=== PATIENT | male | born 1995 | race American Indian/Alaskan Native ===

== ENCOUNTER 2016-09-27 19:08 | Emergency (ER) | payer MEDICAID ==
[2016-09-27 19:18] VITALS: BP 125/70
[2016-09-27] MEDS ORDERED: Albuterol 0.083% 2.5 MG/3 ML Neb Soln NEB ONE (19:49)
[2016-09-27] MEDS ORDERED: Ondansetron 4 MG Tab.DIS PO ONE (19:49)
[2016-09-27] MEDS ORDERED: Codeine/guaiFENesin 100mg-10 MG/5 ML Syrup 10 ML Cup PO ONE (19:53)
--- NOTE | 2016-09-27 20:53 | EDM.PDOC ---
ED HISTORY OF PRESENT ILLNESS - General Chief Complaint: Respiratory Problem Stated Complaint: SICK,LOW OXYGEN Time Seen by Provider: 09/27/16 19:36 Source: Reports: Family (Parent mother) History Limitations: Reports: Physical impairment (Down's syndrome) - History of Present Illness INITIAL COMMENTS - FREE TEXT/NARRATIVE: Hypoxia, respiratory illness: This is a 21-year-old developmentally disabled male presents emergency room with his mother, his mother reports he lives at home today he did not attend adult daycare was home when he started to cough profusely lips turn slightly blue O2 sats 60%. He did not recover like he usually does from his coughing episode mom became concerned and brought to emergency room for evaluation. Samuel did have one coughing episode while in emergency room pointed to his chest as painful and started to cry. Medical History: Down syndrome, chronic lung disease, VSD CPAP at night, home oxygen per concentrator 2 L nasal cannula as needed, Timing/Duration: Reports: Hour(s):, Sudden onset Severity: moderate Location, General: Reports: chest Quality: Reports: Other (Painful per Samuel) Improves with: Reports: Rest Worsens with: Reports: Other (Cough) - Related Data Allergies/ADRs: Allergies Allergy/AdvReac Type Severity Reaction Status Date / Time morphine Allergy Severe Anaphylactic Verified 09/27/16 19:19 Shock loratadine [From Claritin] Allergy Unknown Itching Verified 09/27/16 19:19 Home Meds: Home Meds NK [No Known Home Meds] 09/27/16 [History] Past Medical History HEENT History: Reports: Otitis media Cardiovascular History: Reports: Other (see below) Other Cardiovascular History: Ventral septal defect Respiratory History: Reports: Pneumonia, recurrent, Other (see below) Other Respiratory History: chronic lung disease from scarring from pneumonia PNuemonia aprox 2 months ago. Was hospitalized. Gastrointestinal History: Reports: GERD Musculoskeletal History: Reports: Fracture Other Musculoskeletal History: broken pelvis Other Psychiatric History: Downs Syndrome Endocrine/Metabolic History: Reports: Obesity/BMI 30+ Dermatologic History: Reports: Other (see below) Other Dermatologic History: extremely dry - Past Surgical History HEENT Surgical History: Reports: Adenoidectomy, Tonsillectomy GI Surgical History: Reports: Cholecystectomy Male Surgical History: Reports: Other (see below) Other Male Surgeries/Procedures: testicles brought down Social & Family History - Tobacco Use Smoking Status *Q: Never Smoker Second Hand Smoke Exposure: No - Caffeine Use Caffeine Use: Reports: Energy drinks, Soda, Tea Other Caffeine Use: occassional - Alcohol Use Days Per Week of Alcohol Use: 0 - Recreational Drug Use Recreational Drug Use: No - Living Situation & Occupation Living situation: Reports: single (Lives with mother and younger sister in [facility]. He attends adult daycare) Occupation: disabled (Down's syndrome) ED ROS GENERAL - Review of Systems Review Of Systems: See Below Constitutional: Reports: other (Sudden onset of increased cough and not feeling well.) HEENT: Reports: No symptoms Respiratory: Reports: cough, other (History of chronic lung disease, CPAP at night, O2 as do needed at home, history of hypoxia) Cardiovascular: Reports: No symptoms, Other (VSD) Endocrine: Reports: no symptoms GI/Abdominal: Reports: Nausea (From coughing) : Reports: no symptoms Musculoskeletal: Reports: no symptoms Skin: Reports: no symptoms Neurological: Reports: no symptoms Psychiatric: Reports: No symptoms Hematologic/Lymphatic: Reports: no symptoms Immunologic: Reports: no symptoms ED EXAM, GENERAL - Physical Exam Exam: See Below (Tearful and intermittent crying during exam otherwise pleasant and smiling no distress) Exam Limited By: No limitations General Appearance: alert, anxious Eye Exam: bilateral eye: normal inspection Ears: normal external exam, normal canal, hearing grossly normal, normal TMs, hearing loss Nose: normal inspection, normal mucosa, no blood Throat/Mouth: Normal inspection, Normal lips, Normal teeth, Normal gums, Normal oropharynx, Normal voice, No airway compromise Head: atraumatic, normocephalic Neck: normal inspection, supple, non-tender, full range of motion Respiratory/Chest: no respiratory distress, lungs clear, normal breath sounds, no accessory muscle use, chest non-tender, other (O2 sats greater than 93% while in the ER) Cardiovascular: regular rate, rhythm (Murmur present) GI/Abdominal: normal bowel sounds, soft, non tender, no organomegaly, no distention, no abnormal bruit, no mass (Male) Exam: Deferred Rectal (Males) Exam: Deferred Back Exam: normal inspection, full range of motion Extremities: normal inspection, normal range of motion, non-tender, no pedal edema, normal capillary refill Neurological: alert, normal cognition (At baseline per Mom) Psychiatric: normal affect, normal mood Skin Exam: Warm, Dry, Intact, Normal color, No rash Lymphatic: no adenopathy Course - Vital Signs Last Recorded V/S: Last Vital Signs Temp 36.3 C 09/27/16 19:17 Pulse 86 09/27/16 19:17 Resp 24 H 09/27/16 19:17 BP 125/70 09/27/16 19:17 Pulse Ox 93 L 09/27/16 19:17 - Orders/Labs/Meds Orders: Active Orders 24 hr Category Date Time Status Cardiac Monitoring [RC] .As Directed Care 09/27/16 19:48 Active RT Aerosol Therapy [RC] ASDIRECTED Care 09/27/16 19:50 Active CULTURE BLOOD [BC] Urgent Lab 09/27/16 19:48 Received CULTURE BLOOD [] Urgent Lab 09/27/16 19:48 Received CULTURE STREP A CONFIRMATION [] Stat Lab 09/27/16 20:39 Results STREP SCRN A RAPID W CULT CONF [] Stat Lab 09/27/16 20:39 Results Blood Culture x2 Reflex Set [OM.PC] Urgent Oth 09/27/16 19:48 Ordered Labs: Laboratory Tests 09/27/16 09/27/16 09/27/16 Range/Units 19:48 19:48 19:48 WBC 6.0 (4.5-11.0) K/uL RBC 4.26 L (4.30-5.90) M/uL Hgb 14.6 (12.0-15.0) g/dL Hct 43.3 (40.0-54.0) % MCV 102 H (80-98) fL MCH 34 H (27-31) pg MCHC 34 (32-36) % Plt Count 303 (150-400) K/uL Neut % (Auto) 45 (36-66) % Lymph % (Auto) 41 (24-44) % [place] % (Auto) 10 H (2-6) % Eos % (Auto) 1 L (2-4) % Baso % (Auto) 4 H (0-1) % Sodium 142 (140-148) mmol/L Potassium 3.4 L (3.6-5.2) mmol/L Chloride 105 (100-108) mmol/L Carbon Dioxide 27 (21-32) mmol/L Anion Gap 13.4 (5.0-14.0) mmol/L BUN 10 (7-18) mg/dL Creatinine 1.2 (0.8-1.3) mg/dL Est Cr Clr Drug Dosing 68.87 mL/min Estimated GFR (MDRD) > 60 (>60) Glucose 105 (74-106) mg/dL Lactic Acid 2.6 H (0.4-2.0) mmol/L Calcium 8.5 (8.5-10.1) mg/dL Total Bilirubin 0.4 (0.2-1.0) mg/dL AST 19 (15-37) U/L ALT 29 (12-78) U/L Alkaline Phosphatase 37 L (46-116) U/L Total Protein 7.9 (6.4-8.2) g/dL Albumin 3.5 (3.4-5.0) g/dL Globulin 4.4 H (2.3-3.5) g/dL Albumin/Globulin Ratio 0.8 L (1.2-2.2) Amylase (25-115) U/L Lipase 87 (73-393) U/L 09/27/16 Range/Units 19:48 WBC (4.5-11.0) K/uL RBC (4.30-5.90) M/uL Hgb (12.0-15.0) g/dL Hct (40.0-54.0) % MCV (80-98) fL MCH (27-31) pg MCHC (32-36) % Plt Count (150-400) K/uL Neut % (Auto) (36-66) % Lymph % (Auto) (24-44) % [place] % (Auto) (2-6) % Eos % (Auto) (2-4) % Baso % (Auto) (0-1) % Sodium (140-148) mmol/L Potassium (3.6-5.2) mmol/L Chloride (100-108) mmol/L Carbon Dioxide (21-32) mmol/L Anion Gap (5.0-14.0) mmol/L BUN (7-18) mg/dL Creatinine (0.8-1.3) mg/dL Est Cr Clr Drug Dosing mL/min Estimated GFR (MDRD) (>60) Glucose (74-106) mg/dL Lactic Acid (0.4-2.0) mmol/L Calcium (8.5-10.1) mg/dL Total Bilirubin (0.2-1.0) mg/dL AST (15-37) U/L ALT (12-78) U/L Alkaline Phosphatase (46-116) U/L Total Protein (6.4-8.2) g/dL Albumin (3.4-5.0) g/dL Globulin (2.3-3.5) g/dL Albumin/Globulin Ratio (1.2-2.2) Amylase 51 (25-115) U/L Lipase (73-393) U/L Meds: Medications Discontinued Medications Generic Name Dose Route Start Last Admin Trade Name Freq PRN Reason Stop Dose Admin Albuterol 2.5 mg 09/27/16 19:49 09/27/16 20:17 Proventil Neb Soln NEB 09/27/16 19:50 2.5 mg ONETIME ONE Administration Guaifenesin/Codeine Phosphate 10 ml 09/27/16 19:53 09/27/16 20:17 Robitussin Ac PO 09/27/16 19:54 10 ml ONETIME ONE Administration Ondansetron HCl 4 mg 09/27/16 19:49 09/27/16 20:17 Zofran Odt PO 09/27/16 19:50 4 mg ONETIME ONE Administration Departure - Departure Time of Disposition: 21:20 Disposition: Home, Self-Care 01 Condition: good Clinical Impression: Bronchitis Instructions: Acute Bronchitis, [id number] Referrals: Bruno Hurt MD [Primary Care Provider] - Forms: ED Department Discharge Care Plan Goals: bronchitis -Zithromax 2 tablets today then one tab daily x4 -Robitussin-AC 2 teaspoons every 4-6 hours as needed for painful cough -Rest, push fluids, take medication as directed -Okay to return to daycare a feeling well -Return to clinic or ER for any concerns, increase cough, fever, chills, nausea , vomiting, or worsening of symptoms He should have a recheck with his primary care provider in the next 2-3 days - Problem List & Annotations (1) Bronchitis SNOMED Code(s): 94362848 Code(s): J40 - BRONCHITIS, NOT SPECIFIED ACUTE OR CHRONIC Status: Acute Priority: High - My Orders Last 24 Hours: My Active Orders 09/27/16 19:48 Cardiac Monitoring [RC] .As Directed CULTURE BLOOD [BC] Urgent CULTURE BLOOD [BC] Urgent Blood Culture x2 Reflex Set [OM.PC] Urgent 09/27/16 19:50 RT Aerosol Therapy [RC] ASDIRECTED 09/27/16 20:39 CULTURE STREP A CONFIRMATION [RM] Stat STREP SCRN A RAPID W CULT CONF [RM] Stat - Assessment/Plan Last 24 Hours: My Active Orders 09/27/16 19:48 Cardiac Monitoring [RC] .As Directed CULTURE BLOOD [BC] Urgent CULTURE BLOOD [BC] Urgent Blood Culture x2 Reflex Set [OM.PC] Urgent 09/27/16 19:50 RT Aerosol Therapy [RC] ASDIRECTED 09/27/16 20:39 CULTURE STREP A CONFIRMATION [RM] Stat STREP SCRN A RAPID W CULT CONF [] Stat Plan: bronchitis -Zithromax 2 tablets today then one tab daily x4 -Robitussin-AC 2 teaspoons every 4-6 hours as needed for painful cough -Rest, push fluids, take medication as directed -Okay to return to daycare a feeling well -Return to clinic or ER for any concerns, increase cough, fever, chills, nausea , vomiting, or worsening of symptoms He should have a recheck with his primary care provider in the next 2-3 days
--- NOTE | 2016-09-28 08:58 | CR ---
Abdomen 2V AP Flat Upright HISTORY: Cough COMPARISON: CT scan 07/01/2016. FINDINGS: Prior cholecystectomy. Bowel gas pattern nonobstructive. No free air. Scattered stool with in the colon. Impression: No evidence for acute abdominal process.
--- NOTE | 2016-09-28 09:02 | CR ---
Chest 2V HISTORY: Cough COMPARISON: Prior CT scan 07/01/2016. Prior chest x-ray 04/08/2016. FINDINGS: No dense infiltrates. Cardiac size and pulmonary vessels normal. No effusions. Impression: No acute pulmonary disease.
== END 2016-09-27 21:20 | disposition home or self-care (01) ==
LOC: JP.ED 19:08
DX: J40 Bronchitis, not specified as acute or chronic (principal); Z88.5 Allergy status to narcotic agent; Z88.8 Allergy status to other drugs, medicaments and biological substances; Z90.49 Acquired absence of other specified parts of digestive tract; Z98.890 Other specified postprocedural states
CPT/HCPCS: 36415; 71020; 74020; 80053; 82150; 83605; 83690; 85025; 87040; 87081; 87430; 87804; 99284; A9270; 99283

== ENCOUNTER 2017-05-03 19:14 | Emergency (ER) | payer MEDICAID ==
[2017-05-03] MEDS ORDERED: Ondansetron 4 MG/2 ML SDV IVPUSH ONE (20:51)
--- NOTE | 2017-05-03 20:57 | EDM.PDOC ---
ED HPI GENERAL MEDICAL PROBLEM - General Chief Complaint: Gastrointestinal Problem Stated Complaint: VOMITING,COUGH Time Seen by Provider: 05/03/17 19:21 Source of Information: Reports: Patient, Family History Limitations: Reports: Other (Down syndrome) - History of Present Illness INITIAL COMMENTS - FREE TEXT/NARRATIVE: History collected with help of mother. 21 years old male patient with history of Down syndrome brought in by his mom with chief complaint of vomiting for the last 2 hours. Also coughing, productive was clear sputum. Denies any fever. Complaining of chest pain and abdominal pain. Complete review of system cannot be done because patient special-needs and history of Down syndrome. Denies any fever. Chest Pain Score (Numeric/FACES): 5 - Related Data Allergies Allergy/AdvReac Type Severity Reaction Status Date / Time morphine Allergy Severe Anaphylactic Verified 05/03/17 20:35 Shock loratadine [From Claritin] Allergy Unknown Itching Verified 05/03/17 20:35 Home Meds: Home Meds NK [No Known Home Meds] 09/27/16 [History] Past Medical History HEENT History: Reports: Otitis Media Cardiovascular History: Reports: Other (See Below) Other Cardiovascular History: VSD Respiratory History: Reports: Pneumonia, Recurrent, Other (See Below) Other Respiratory History: Chronic lung disease Gastrointestinal History: Reports: GERD Musculoskeletal History: Reports: Fracture Other Musculoskeletal History: broken pelvis Other Psychiatric History: Downs Syndrome Endocrine/Metabolic History: Reports: Obesity/BMI 30+ Dermatologic History: Reports: Other (See Below) Other Dermatologic History: extremely dry - Past Surgical History GI Surgical History: Reports: Cholecystectomy Social & Family History - Tobacco Use Smoking Status *Q: Never Smoker Second Hand Smoke Exposure: Yes - Caffeine Use Caffeine Use: Reports: Energy Drinks, Soda, Tea Other Caffeine Use: occassional - Alcohol Use Days Per Week of Alcohol Use: 0 - Recreational Drug Use Recreational Drug Use: No - Living Situation & Occupation Living situation: Reports: Single Occupation: Disabled ED ROS GENERAL - Review of Systems Review Of Systems: ROS reveals no pertinent complaints other than HPI. ED EXAM, GI/ABD - Physical Exam Exam: See Below Exam Limited By: No Limitations General Appearance: Alert, WD/WN, No Apparent Distress Nose: Normal Inspection, Normal Mucosa, No Blood Throat/Mouth: Normal Inspection, Normal Lips, Normal Teeth, Normal Gums, Normal Oropharynx, Normal Voice, No Airway Compromise Head: Atraumatic, Normocephalic Neck: Normal Inspection, Supple, Non-Tender, Full Range of Motion Respiratory/Chest: No Respiratory Distress. No: Decreased Breath Sounds, Crackles, Rhonchi, Wheezing Cardiovascular: Normal Peripheral Pulses, Regular Rate, Rhythm, No Edema, No Gallop, No JVD, No Rub, Systolic Murmur GI/Abdominal Exam: Normal Bowel Sounds, Soft, No Organomegaly, No Distention, No Abnormal Bruit, No Mass, Pelvis Stable, Tender. No: Guarding, Rebound Extremities: Normal Inspection, Normal Range of Motion, Non-Tender, Normal Capillary Refill, No Pedal Edema Neurological: Alert, CN II-XII Intact, Normal Reflexes, No Motor/Sensory Deficits, Slow to Respond. No: Disoriented Course - Vital Signs Last Recorded V/S: Last Vital Signs Temp 35.8 C 05/03/17 21:20 Pulse 78 05/03/17 21:20 Resp 20 05/03/17 21:20 BP 119/75 05/03/17 21:20 Pulse Ox 93 L 05/03/17 21:20 - Orders/Labs/Meds Orders: Active Orders 24 hr Category Date Time Status EKG Documentation Completion [RC] ASDIRECTED Care 05/03/17 20:49 Active Chest 2V [CR] Urgent Exams 05/03/17 20:47 Taken Azithromycin [Zithromax] 500 mg Med 05/03/17 22:31 Active Sodium Chloride 0.9% [Normal Saline] 250 ml IV ONETIME cefTRIAXone [Rocephin] 1 gm Med 05/03/17 22:31 Active Sodium Chloride 0.9% [Normal Saline] 50 ml IV ONETIME ED Antiemetic Medication Reflex [OM.PC] Click to Edit Oth 05/03/17 20:47 Ordered EKG 12 Lead [EK] Urgent Ther 05/03/17 20:47 Ordered Medication Orders Azithromycin 500 mg/ Sodium (Chloride) 250 mls @ 250 mls/hr IV ONETIME ONE Stop: 05/03/17 23:30 Ceftriaxone Sodium 1 gm/ (Sodium Chloride) 50 mls @ 100 mls/hr IV ONETIME ONE Stop: 05/03/17 23:00 Labs: Laboratory Tests 05/03/17 05/03/17 05/03/17 Range/Units 21:05 21:05 21:05 WBC 8.8 (4.5-11.0) K/uL RBC 4.48 (4.30-5.90) M/uL Hgb 15.6 H (12.0-15.0) g/dL Hct 45.4 (40.0-54.0) % MCV 101 H (80-98) fL MCH 35 H (27-31) pg MCHC 34 (32-36) % Plt Count 323 (150-400) K/uL Neut % (Auto) 56 (36-66) % Lymph % (Auto) 34 (24-44) % [place] % (Auto) 8 H (2-6) % Eos % (Auto) 1 L (2-4) % Baso % (Auto) 1 (0-1) % Sodium 139 L (140-148) mmol/L Potassium 4.0 (3.6-5.2) mmol/L Chloride 104 (100-108) mmol/L Carbon Dioxide 27 (21-32) mmol/L Anion Gap 12.0 (5.0-14.0) mmol/L BUN 12 (7-18) mg/dL Creatinine 1.1 (0.8-1.3) mg/dL Est Cr Clr Drug Dosing 75.13 mL/min Estimated GFR (MDRD) > 60 (>60) Glucose 97 (74-106) mg/dL Lactic Acid 1.4 (0.4-2.0) mmol/L Calcium 8.6 (8.5-10.1) mg/dL Total Bilirubin 0.2 (0.2-1.0) mg/dL AST 20 (15-37) U/L ALT 31 (12-78) U/L Alkaline Phosphatase 61 (46-116) U/L Troponin I < 0.017 (0.000-0.056) ng/mL Total Protein 7.6 (6.4-8.2) g/dL Albumin 3.4 (3.4-5.0) g/dL Globulin 4.2 H (2.3-3.5) g/dL Albumin/Globulin Ratio 0.8 L (1.2-2.2) Amylase 70 (25-115) U/L Lipase 85 (73-393) U/L Urine Color Urine Appearance Urine pH (4.5-8.0) Ur Specific [place] (1.008-1.030) Urine Protein (NEGATIVE) mg/dL Urine Glucose (UA) (NEGATIVE) mg/dL Urine Ketones (NEGATIVE) mg/dL Urine Occult Blood (NEGATIVE) Urine Nitrite (NEGAITVE) Urine Bilirubin (NEGATIVE) Urine Urobilinogen (NORMAL) mg/dL Ur Leukocyte Esterase (NEGATIVE) Urine RBC (0-5) Urine WBC (0-5) Ur Epithelial Cells Amorphous Sediment Urine Bacteria Urine Mucus 05/03/17 Range/Units 21:31 WBC (4.5-11.0) K/uL RBC (4.30-5.90) M/uL Hgb (12.0-15.0) g/dL Hct (40.0-54.0) % MCV (80-98) fL MCH (27-31) pg MCHC (32-36) % Plt Count (150-400) K/uL Neut % (Auto) (36-66) % Lymph % (Auto) (24-44) % [place] % (Auto) (2-6) % Eos % (Auto) (2-4) % Baso % (Auto) (0-1) % Sodium (140-148) mmol/L Potassium (3.6-5.2) mmol/L Chloride (100-108) mmol/L Carbon Dioxide (21-32) mmol/L Anion Gap (5.0-14.0) mmol/L BUN (7-18) mg/dL Creatinine (0.8-1.3) mg/dL Est Cr Clr Drug Dosing mL/min Estimated GFR (MDRD) (>60) Glucose (74-106) mg/dL Lactic Acid (0.4-2.0) mmol/L Calcium (8.5-10.1) mg/dL Total Bilirubin (0.2-1.0) mg/dL AST (15-37) U/L ALT (12-78) U/L Alkaline Phosphatase (46-116) U/L Troponin I (0.000-0.056) ng/mL Total Protein (6.4-8.2) g/dL Albumin (3.4-5.0) g/dL Globulin (2.3-3.5) g/dL Albumin/Globulin Ratio (1.2-2.2) Amylase (25-115) U/L Lipase (73-393) U/L Urine Color Yellow Urine Appearance Clear Urine pH 6.0 (4.5-8.0) Ur Specific [place] 1.010 (1.008-1.030) Urine Protein Negative (NEGATIVE) mg/dL Urine Glucose (UA) Normal (NEGATIVE) mg/dL Urine Ketones Negative (NEGATIVE) mg/dL Urine Occult Blood Negative (NEGATIVE) Urine Nitrite Negative (NEGAITVE) Urine Bilirubin Negative (NEGATIVE) Urine Urobilinogen Normal (NORMAL) mg/dL Ur Leukocyte Esterase Negative (NEGATIVE) Urine RBC Not seen (0-5) Urine WBC Not seen (0-5) Ur Epithelial Cells Rare Amorphous Sediment Not seen Urine Bacteria Rare Urine Mucus Not seen Meds: Medications Generic Name Dose Route Start Last Admin Trade Name Freq PRN Reason Stop Dose Admin Azithromycin 500 mg/ Sodium 250 mls @ 250 mls/hr 05/03/17 22:31 Chloride IV 05/03/17 23:30 ONETIME ONE Ceftriaxone Sodium 1 gm/ 50 mls @ 100 mls/hr 05/03/17 22:31 Sodium Chloride IV 05/03/17 23:00 ONETIME ONE Discontinued Medications Generic Name Dose Route Start Last Admin Trade Name Freq PRN Reason Stop Dose Admin Ondansetron HCl 4 mg 05/03/17 20:51 05/03/17 21:16 Zofran IVPUSH 05/03/17 20:52 4 mg ONETIME ONE Administration - Re-Assessments/Exams Free Text/Narrative Re-Assessment/Exam: 05/03/17 20:56 Patient was seen and examined shortly after arrival. Stable. Given 4 mg IV Zofran. Lab and imaging reviewed with the patient and his mother at the bedside. No significant abnormalities. Chest x-ray is suspicious for possible early developing pneumonia. Started on Rocephin and azithromycin. Mom stated that he usually gets sick very quick and always need to be hospitalized. We do not have any available bed. I did consulted with Dr. Irizarry ER physician at [facility] and Dr. Blackwood hospitalist and accepted the transfer. Patient accepted by Dr. Irizarry and margaret for discharge. Mom agrees with the plan. 05/03/17 22:49 Departure - Departure Time of Disposition: 22:51 Disposition: DC/Tfer to Acute Hospital 02 Condition: Good Clinical Impression: Pneumonia, Vomiting - Discharge Information Referrals: Bruno Hurt MD [Primary Care Provider] - Forms: ED Department Discharge - My Orders Last 24 Hours: My Active Orders 05/03/17 20:47 Chest 2V [CR] Urgent ED Antiemetic Medication Reflex [OM.PC] Click to Edit EKG 12 Lead [EK] Urgent 05/03/17 20:49 EKG Documentation Completion [RC] ASDIRECTED 05/03/17 22:31 Azithromycin [Zithromax] 500 mg Sodium Chloride 0.9% [Normal Saline] 250 ml IV ONETIME cefTRIAXone [Rocephin] 1 gm Sodium Chloride 0.9% [Normal Saline] 50 ml IV ONETIME - Assessment/Plan Last 24 Hours: My Active Orders 05/03/17 20:47 Chest 2V [CR] Urgent ED Antiemetic Medication Reflex [OM.PC] Click to Edit EKG 12 Lead [EK] Urgent 05/03/17 20:49 EKG Documentation Completion [RC] ASDIRECTED 05/03/17 22:31 Azithromycin [Zithromax] 500 mg Sodium Chloride 0.9% [Normal Saline] 250 ml IV ONETIME cefTRIAXone [Rocephin] 1 gm Sodium Chloride 0.9% [Normal Saline] 50 ml IV ONETIME
[2017-05-03] MEDS ORDERED: Azithromycin 500 MG in Sodium Chloride 0.9% 250 ML IV ONE (22:31)
[2017-05-03] MEDS ORDERED: cefTRIAXone 1 GM in Sodium Chloride 0.9% 50 ML IV ONE (22:31)
[2017-05-03 22:57] VITALS: BP 123/72
--- NOTE | 2017-05-04 08:56 | CR ---
Chest 2V HISTORY: cough COMPARISON: 09/27/2016 FINDINGS: Lungs appear clear and normally aerated. Cardiomediastinal silhouette is within normal limits. No vas cular redistribution or pleural fluid can be seen. Bony structures and soft tissues are unremarkable. IMPRESSION: No acute chest abnormality or significant interval change is identified.
== END 2017-05-03 23:34 ==
LOC: JP.ED 19:14
DX: J18.9 Pneumonia, unspecified organism (principal); K21.9 Gastro-esophageal reflux disease without esophagitis; E66.9 Obesity, unspecified; Z87.01 Personal history of pneumonia (recurrent); Z90.49 Acquired absence of other specified parts of digestive tract; Z88.5 Allergy status to narcotic agent
CPT/HCPCS: 36415; 71020; 80053; 81001; 82150; 83605; 83690; 84484; 85025; 93005; 96365; 96375; 99285; J0456; J0696; J2405; J7050; 93010; 99284

== ENCOUNTER 2017-07-31 20:10 | Emergency (ER) | payer MEDICAID ==
[2017-08-01] VITALS: BP 127/74
[2017-08-01] MEDS ORDERED: Sodium Chloride 0.9% 1,000 ML IV SCH ×2 (00:30→02:00)
[2017-08-01] MEDS ORDERED: Triamcinolone Acetonide 40 MG/ML 1 ML MDV INJECT ONE (01:01)
[2017-08-01] MEDS ORDERED: Acetaminophen/HYDROcodone 325-5 MG Tab PO ONE (01:02)
[2017-08-01] MEDS ORDERED: cefTRIAXone 1 GM in Sodium Chloride 0.9% 50 ML IV ONE (01:46)
--- NOTE | 2017-08-01 01:51 | EDM.PDOC ---
ED HPI GENERAL MEDICAL PROBLEM - General Chief Complaint: Respiratory Problem Stated Complaint: UPPER RESPIRATORY SYMPTOMS Time Seen by Provider: 07/31/17 23:35 Source of Information: Reports: Patient, Family History Limitations: Reports: No Limitations - History of Present Illness INITIAL COMMENTS - FREE TEXT/NARRATIVE: PT ARRIVED WITH A HACKY COUGH AND FEELING SLIGHTLY SOB. hE ALSO HS HAD SEVERE PAIN IN BPTH FEET. tHEY ARE SWOLLEN AND TENDER TO PALPATE PARTICULARLY BY THE GREAT TOES. Onset: Today Duration: Hour(s):, Other ( THE FOOT PAIN STARTED SOME LAST NITE. ) Location: Reports: Chest, Lower Extremity, Left, Lower Extremity, Right Associated Symptoms: Reports: Cough Bilateral Feet Pain Score (Numeric/FACES): 9 - Related Data Allergies Allergy/AdvReac Type Severity Reaction Status Date / Time morphine Allergy Severe Anaphylactic Verified 07/31/17 23:28 Shock loratadine [From Claritin] Allergy Unknown Itching Verified 07/31/17 23:28 Home Meds: Home Meds Ibuprofen [Motrin] 800 mg PO ASDIRECTED 07/31/17 [History] Past Medical History HEENT History: Reports: Otitis Media Cardiovascular History: Reports: Other (See Below) Other Cardiovascular History: VSD Respiratory History: Reports: Pneumonia, Recurrent, Other (See Below) Other Respiratory History: Chronic lung disease Gastrointestinal History: Reports: GERD Musculoskeletal History: Reports: Fracture Other Musculoskeletal History: broken pelvis Other Psychiatric History: Downs Syndrome Endocrine/Metabolic History: Reports: Obesity/BMI 30+ Dermatologic History: Reports: Other (See Below) Other Dermatologic History: extremely dry - Past Surgical History HEENT Surgical History: Reports: Tonsillectomy GI Surgical History: Reports: Cholecystectomy Social & Family History - Tobacco Use Smoking Status *Q: Never Smoker Second Hand Smoke Exposure: No - Caffeine Use Caffeine Use: Reports: Soda Other Caffeine Use: occassional - Alcohol Use Days Per Week of Alcohol Use: 0 - Recreational Drug Use Recreational Drug Use: No - Living Situation & Occupation Living situation: Reports: Single Occupation: Disabled ED ROS GENERAL - Review of Systems Review Of Systems: See Below Constitutional: Reports: Chills, Weakness HEENT: Reports: No Symptoms Respiratory: Reports: Cough Cardiovascular: Reports: No Symptoms Endocrine: Reports: No Symptoms GI/Abdominal: Reports: No Symptoms : Reports: No Symptoms Musculoskeletal: Reports: Other (PT HAS SEVERE PAIN IN BOTH FEET. H WAS UNABLE TO CONTINUE WORK TODAY. ) Neurological: Reports: No Symptoms ED EXAM, GENERAL - Physical Exam Exam: See Below Free Text/Narrative:: pT ARRIVED WITH PAINFUL FEET AND THEY HAVE BEEN SWELLING. hE ALSO HAS A COUGH AND DOES NOT FEEL WELL IN GENERAL. Exam Limited By: No Limitations General Appearance: Alert, Anxious, Moderate Distress Ears: Normal TMs Nose: Nasal Deformity Throat/Mouth: Normal Inspection Head: Atraumatic Neck: Normal Inspection Respiratory/Chest: No Respiratory Distress Cardiovascular: Regular Rate, Rhythm, Tachycardia, Other ( PT HAS A HISTORY OF A VSD) GI/Abdominal: Soft, Non-Tender (Male) Exam: Deferred Rectal (Males) Exam: Deferred Back Exam: Normal Inspection Extremities: Redness, Other ( BOTH FEET ARE TENDER AND ARE SWOLLEN. pt is very tender by the great toes. ) Neurological: Alert, Oriented, Normal Cognition, Other (PT DOES HAVE VIVEK SYNDROME. ) Psychiatric: Anxious Course - Vital Signs Last Recorded V/S: Last Vital Signs Temp 36.5 C 07/31/17 23:25 Pulse 97 07/31/17 23:51 Resp 16 07/31/17 23:51 BP 127/74 07/31/17 23:51 Pulse Ox 96 07/31/17 23:51 - Orders/Labs/Meds Labs: Laboratory Tests 07/31/17 07/31/17 07/31/17 Range/Units 01:34 23:38 23:45 WBC 12.6 H (4.5-11.0) K/uL RBC 4.42 (4.30-5.90) M/uL Hgb 15.3 H (12.0-15.0) g/dL Hct 44.4 (40.0-54.0) % MCV 101 H (80-98) fL MCH 35 H (27-31) pg MCHC 35 (32-36) % Plt Count 316 (150-400) K/uL Neut % (Auto) 65 (36-66) % Lymph % (Auto) 20 L (24-44) % [place] % (Auto) 14 H (2-6) % Eos % (Auto) 0 L (2-4) % Baso % (Auto) 1 (0-1) % Sodium 140 (140-148) mmol/L Potassium 3.5 L (3.6-5.2) mmol/L Chloride 101 (100-108) mmol/L Carbon Dioxide 29 (21-32) mmol/L Anion Gap 13.5 (5.0-14.0) mmol/L BUN 11 (7-18) mg/dL Creatinine 1.1 (0.8-1.3) mg/dL Est Cr Clr Drug Dosing 74.49 mL/min Estimated GFR (MDRD) > 60 (>60) Glucose 93 (74-106) mg/dL Uric Acid (3.5-7.2) mg/dL Calcium 9.0 (8.5-10.1) mg/dL Total Bilirubin 1.0 D (0.2-1.0) mg/dL AST 19 (15-37) U/L ALT 27 (12-78) U/L Alkaline Phosphatase 54 (46-116) U/L C-Reactive Protein (0.0-0.3) mg/dL Total Protein 7.9 (6.4-8.2) g/dL Albumin 3.2 L (3.4-5.0) g/dL Globulin 4.7 H (2.3-3.5) g/dL Albumin/Globulin Ratio 0.7 L (1.2-2.2) Urine Color Yellow Urine Appearance Clear Urine pH 5.0 (4.5-8.0) Ur Specific [place] 1.015 (1.008-1.030) Urine Protein Negative (NEGATIVE) mg/dL Urine Glucose (UA) Normal (NEGATIVE) mg/dL Urine Ketones 15 H (NEGATIVE) mg/dL Urine Occult Blood Negative (NEGATIVE) Urine Nitrite Negative (NEGAITVE) Urine Bilirubin Negative (NEGATIVE) Urine Urobilinogen 1 (NORMAL) mg/dL Ur Leukocyte Esterase Negative (NEGATIVE) Urine RBC 0-5 (0-5) Urine WBC 0-5 (0-5) Ur Epithelial Cells Few Amorphous Sediment Not seen Urine Bacteria Few Urine Mucus Not seen 07/31/17 07/31/17 Range/Units 23:51 23:52 WBC (4.5-11.0) K/uL RBC (4.30-5.90) M/uL Hgb (12.0-15.0) g/dL Hct (40.0-54.0) % MCV (80-98) fL MCH (27-31) pg MCHC (32-36) % Plt Count (150-400) K/uL Neut % (Auto) (36-66) % Lymph % (Auto) (24-44) % [place] % (Auto) (2-6) % Eos % (Auto) (2-4) % Baso % (Auto) (0-1) % Sodium (140-148) mmol/L Potassium (3.6-5.2) mmol/L Chloride (100-108) mmol/L Carbon Dioxide (21-32) mmol/L Anion Gap (5.0-14.0) mmol/L BUN (7-18) mg/dL Creatinine (0.8-1.3) mg/dL Est Cr Clr Drug Dosing mL/min Estimated GFR (MDRD) (>60) Glucose (74-106) mg/dL Uric Acid 11.4 H (3.5-7.2) mg/dL Calcium (8.5-10.1) mg/dL Total Bilirubin (0.2-1.0) mg/dL AST (15-37) U/L ALT (12-78) U/L Alkaline Phosphatase (46-116) U/L C-Reactive Protein 15.66 H (0.0-0.3) mg/dL Total Protein (6.4-8.2) g/dL Albumin (3.4-5.0) g/dL Globulin (2.3-3.5) g/dL Albumin/Globulin Ratio (1.2-2.2) Urine Color Urine Appearance Urine pH (4.5-8.0) Ur Specific [place] (1.008-1.030) Urine Protein (NEGATIVE) mg/dL Urine Glucose (UA) (NEGATIVE) mg/dL Urine Ketones (NEGATIVE) mg/dL Urine Occult Blood (NEGATIVE) Urine Nitrite (NEGAITVE) Urine Bilirubin (NEGATIVE) Urine Urobilinogen (NORMAL) mg/dL Ur Leukocyte Esterase (NEGATIVE) Urine RBC (0-5) Urine WBC (0-5) Ur Epithelial Cells Amorphous Sediment Urine Bacteria Urine Mucus Meds: Medications Discontinued Medications Generic Name Dose Route Start Last Admin Trade Name Freq PRN Reason Stop Dose Admin Hydrocodone Bitart/Acetaminophen 1 tab 08/01/17 01:02 08/01/17 01:15 [place] 325-5 Mg PO 08/01/17 01:03 1 tab ONETIME ONE Administration Sodium Chloride 1,000 mls @ 500 mls/hr 01/03/18 00:30 08/01/17 02:45 Normal Saline IV 999 mls/hr ASDIRECTED RAFAEL Infusion Ceftriaxone Sodium 1 gm/ 50 mls @ 100 mls/hr 08/01/17 01:46 08/01/17 02:42 Sodium Chloride IV 08/01/17 02:15 100 mls/hr ONETIME ONE Administration Sodium Chloride 1,000 mls @ 999 mls/hr 08/01/17 02:00 08/01/17 02:55 Normal Saline IV 999 mls/hr ASDIRECTED RAFAEL Administration Indomethacin 50 mg 08/01/17 01:56 08/01/17 02:43 Indocin PO 08/01/17 01:57 50 mg ONETIME ONE Administration Triamcinolone Acetonide 60 mg 08/01/17 01:01 08/01/17 01:16 Kenalog-40 INJECT 08/01/17 01:02 60 mg ASDIRECTED ONE Administration - Re-Assessments/Exams Free Text/Narrative Re-Assessment/Exam: 08/01/17 01:51 pT WAS FOUND TO HAVE A HIGH URIC ACID GREATER THAN 11. hE HAS VERY PAINFUL FEET. hE ALSO A COUGH. hE HAS A VERY HIGH CRP. HIS CHEST XRSY DOES NOT REVEAL A INFILTRATE. Departure - Departure Time of Disposition: 23:50 Disposition: Home, Self-Care 01 Condition: Fair Clinical Impression: Gout attack, Bronchitis, Dehydration - Discharge Information Instructions: Gout, [id number], Dehydration, Adult, [id number], Acute Bronchitis, [id number] Referrals: Bruno Hurt MD [Primary Care Provider] - Forms: ED Department Discharge Care Plan Goals: APT WITH dR Hurt IN 4-5 DAYS, INDOCIN 50MG BID WITH FOOD FOR GOUT, SOAK FEET IN COOL WATER OR COOL PACK, COOL MIST HUMIDIFIER, AUGMENTIN 875 BID,
[2017-08-01] MEDS ORDERED: Indomethacin 25 MG Cap PO ONE (01:56)
--- NOTE | 2017-08-01 08:51 | CR ---
Chest 1V Frontal INDICATION: sob COMPARISON: 05/03/2017 FINDINGS: AP portable chest. No acute interval change. Stable cardiomegaly and vascular congestion. No new infiltrates. No pleural effusions.
== END 2017-08-01 04:00 | disposition home or self-care (01) ==
LOC: JP.ED 20:10
DX: J40 Bronchitis, not specified as acute or chronic (principal); M10.9 Gout, unspecified; E86.0 Dehydration; Z88.5 Allergy status to narcotic agent; Z88.8 Allergy status to other drugs, medicaments and biological substances
CPT/HCPCS: 36415; 71045; 80053; 81001; 84550; 85025; 86140; 87804; 96361; 96365; 96372; 99284; A9270; J0696; J3301; J7040; J7050; 99283; J7030

== ENCOUNTER 2020-09-17 20:56 | Observation (INO) | payer MEDICAID ==
--- NOTE | 2020-09-17 21:16 | EDM.PDOC ---
ED HPI GENERAL MEDICAL PROBLEM - General Chief Complaint: Respiratory Problem Stated Complaint: BREATHING/LUNG DISEASE Time Seen by Provider: 09/17/20 21:08 Source of Information: Reports: Patient, RN Notes Reviewed History Limitations: Reports: No Limitations - History of Present Illness INITIAL COMMENTS - FREE TEXT/NARRATIVE: 25-year-old gentleman presents emergency department day complaint of fever and shortness of breath he has known history of Down syndrome as well as ventral septal defect. He has been out in the community working however his illness come on suddenly today, difficult to obtain review of systems as he is non communicative at this time - Related Data Allergies Allergy/AdvReac Type Severity Reaction Status Date / Time morphine Allergy Severe Anaphylactic Verified 09/17/20 21:07 Shock loratadine [From Claritin] Allergy Unknown Itching Verified 09/17/20 21:07 Home Meds: Home Meds Ibuprofen [Motrin] 800 mg PO ASDIRECTED 07/31/17 [History] Allopurinol [Zyloprim] 100 mg PO DAILY 09/17/20 [History] Past Medical History HEENT History: Reports: Otitis Media Cardiovascular History: Reports: Other (See Below) Other Cardiovascular History: VSD Respiratory History: Reports: Pneumonia, Recurrent, Other (See Below) Other Respiratory History: Chronic lung disease Gastrointestinal History: Reports: GERD Musculoskeletal History: Reports: Fracture Other Musculoskeletal History: broken pelvis Other Psychiatric History: Downs Syndrome Endocrine/Metabolic History: Reports: Obesity/BMI 30+ Dermatologic History: Reports: Other (See Below) Other Dermatologic History: extremely dry - Past Surgical History HEENT Surgical History: Reports: Tonsillectomy GI Surgical History: Reports: Cholecystectomy Social & Family History - Tobacco Use Tobacco Use Status *Q: Never Tobacco User - Caffeine Use Caffeine Use: Reports: Soda, Tea Other Caffeine Use: occassional - Recreational Drug Use Recreational Drug Use: No - Living Situation & Occupation Living situation: Reports: Single Occupation: Disabled ED ROS GENERAL - Review of Systems Review Of Systems: See Below Constitutional: Reports: Fever, Chills HEENT: Reports: No Symptoms Respiratory: Reports: Shortness of Breath, Cough Cardiovascular: Reports: Dyspnea on Exertion GI/Abdominal: Reports: No Symptoms ED EXAM, GENERAL - Physical Exam Exam: See Below Exam Limited By: Physical Impairment General Appearance: Alert, WD/WN, No Apparent Distress Respiratory/Chest: No Respiratory Distress, No Accessory Muscle Use, Chest Non- Tender, Decreased Breath Sounds Cardiovascular: Regular Rate, Rhythm, No Murmur Course - Vital Signs Last Recorded V/S: Last Vital Signs Temp 95.6 F L 09/17/20 22:21 Pulse 80 09/17/20 22:21 Resp 18 09/17/20 22:21 BP 111/76 09/17/20 22:21 Pulse Ox 93 L 09/17/20 22:21 - Orders/Labs/Meds Orders: Active Orders 24 hr Category Date Time Status Peripheral IV Care [RC] . DIRECTED Care 09/17/20 22:26 Ordered Chest 1V Frontal [CR] Stat Exams 09/17/20 21:12 Taken CULTURE BLOOD [BC] Urgent Lab 09/17/20 22:26 Ordered CULTURE BLOOD [BC] Urgent Lab 09/17/20 22:26 Ordered UA W/MICROSCOPIC [URIN] Urgent Lab 09/17/20 22:23 Ordered Sodium Chloride 0.9% [Saline Flush] Med 09/17/20 22:26 Ordered 10 ml FLUSH ASDIRECTED PRN Blood Culture x2 Reflex Set [OM.PC] Urgent Oth 09/17/20 22:26 Ordered Isolation [COMM] Stat Oth 09/17/20 21:12 Ordered Peripheral IV Insertion Adult [OM.PC] Urgent Oth 09/17/20 22:26 Ordered Medication Orders Sodium Chloride (Saline Flush) 10 ml FLUSH ASDIRECTED PRN PRN Reason: Keep Vein Open Labs: Laboratory Tests 09/17/20 09/17/20 09/17/20 Range/Units 21:20 21:30 21:32 WBC 9.9 (4.5-11.0) K/uL RBC 4.48 (4.30-5.90) M/uL Hgb 15.3 H (12.0-15.0) g/dL Hct 47.1 (40.0-54.0) % MCV 105 H (80-98) fL MCH 34 H (27-31) pg MCHC 33 (32-36) % Plt Count 341 (150-400) K/uL Neut % (Auto) 59 (36-66) % Lymph % (Auto) 31 (24-44) % [place] % (Auto) 9 H (2-6) % Eos % (Auto) 1 L (2-4) % Baso % (Auto) 1 (0-1) % D-Dimer, Quantitative 538.84 H (0.0-500.0) ng/mL Sodium (140-148) mmol/L Potassium (3.6-5.2) mmol/L Chloride (100-108) mmol/L Carbon Dioxide (21-32) mmol/L Anion Gap (5.0-14.0) mmol/L BUN (7-18) mg/dL Creatinine (0.8-1.3) mg/dL Est Cr Clr Drug Dosing mL/min Estimated GFR (MDRD) (>60) Glucose (74-106) mg/dL Lactic Acid (0.4-2.0) mmol/L Calcium (8.5-10.1) mg/dL Total Bilirubin (0.2-1.0) mg/dL Direct Bilirubin (0.0-0.2) mg/dL Indirect Bilirubin AST (15-37) U/L ALT (12-78) U/L Alkaline Phosphatase (46-116) U/L Troponin I (0.000-0.056) ng/mL C-Reactive Protein (0.0-0.3) mg/dL Total Protein (6.4-8.2) g/dL Albumin (3.4-5.0) g/dL Globulin (2.3-3.5) g/dL Albumin/Globulin Ratio (1.2-2.2) Procalcitonin ng/mL Influenza Type A RNA Negative (NEGATIVE) RSV RNA (INAAT) Negative (NEGATIVE) Influenza Type B RNA Negative (NEGATIVE) SARS-CoV-2 RNA (MARI) Negative (NEGATIVE) 09/17/20 09/17/20 09/17/20 Range/Units 21:32 21:32 21:32 WBC (4.5-11.0) K/uL RBC (4.30-5.90) M/uL Hgb (12.0-15.0) g/dL Hct (40.0-54.0) % MCV (80-98) fL MCH (27-31) pg MCHC (32-36) % Plt Count (150-400) K/uL Neut % (Auto) (36-66) % Lymph % (Auto) (24-44) % [place] % (Auto) (2-6) % Eos % (Auto) (2-4) % Baso % (Auto) (0-1) % D-Dimer, Quantitative (0.0-500.0) ng/mL Sodium 140 (140-148) mmol/L Potassium 4.0 (3.6-5.2) mmol/L Chloride 105 (100-108) mmol/L Carbon Dioxide 28 (21-32) mmol/L Anion Gap 7.0 (5.0-14.0) mmol/L BUN 10 (7-18) mg/dL Creatinine 1.1 (0.8-1.3) mg/dL Est Cr Clr Drug Dosing 72.60 mL/min Estimated GFR (MDRD) > 60 (>60) Glucose 102 (74-106) mg/dL Lactic Acid 1.2 (0.4-2.0) mmol/L Calcium 8.7 (8.5-10.1) mg/dL Total Bilirubin 0.3 D (0.2-1.0) mg/dL Direct Bilirubin 0.07 (0.0-0.2) mg/dL Indirect Bilirubin TNP AST 22 (15-37) U/L ALT 55 D (12-78) U/L Alkaline Phosphatase 63 (46-116) U/L Troponin I (0.000-0.056) ng/mL C-Reactive Protein 1.43 H (0.0-0.3) mg/dL Total Protein 7.5 (6.4-8.2) g/dL Albumin 3.2 L (3.4-5.0) g/dL Globulin 4.3 H (2.3-3.5) g/dL Albumin/Globulin Ratio 0.7 L (1.2-2.2) Procalcitonin < 0.05 ng/mL Influenza Type A RNA (NEGATIVE) RSV RNA (INAAT) (NEGATIVE) Influenza Type B RNA (NEGATIVE) SARS-CoV-2 RNA (MARI) (NEGATIVE) 09/17/20 Range/Units 21:32 WBC (4.5-11.0) K/uL RBC (4.30-5.90) M/uL Hgb (12.0-15.0) g/dL Hct (40.0-54.0) % MCV (80-98) fL MCH (27-31) pg MCHC (32-36) % Plt Count (150-400) K/uL Neut % (Auto) (36-66) % Lymph % (Auto) (24-44) % [place] % (Auto) (2-6) % Eos % (Auto) (2-4) % Baso % (Auto) (0-1) % D-Dimer, Quantitative (0.0-500.0) ng/mL Sodium (140-148) mmol/L Potassium (3.6-5.2) mmol/L Chloride (100-108) mmol/L Carbon Dioxide (21-32) mmol/L Anion Gap (5.0-14.0) mmol/L BUN (7-18) mg/dL Creatinine (0.8-1.3) mg/dL Est Cr Clr Drug Dosing mL/min Estimated GFR (MDRD) (>60) Glucose (74-106) mg/dL Lactic Acid (0.4-2.0) mmol/L Calcium (8.5-10.1) mg/dL Total Bilirubin (0.2-1.0) mg/dL Direct Bilirubin (0.0-0.2) mg/dL Indirect Bilirubin AST (15-37) U/L ALT (12-78) U/L Alkaline Phosphatase (46-116) U/L Troponin I < 0.017 (0.000-0.056) ng/mL C-Reactive Protein (0.0-0.3) mg/dL Total Protein (6.4-8.2) g/dL Albumin (3.4-5.0) g/dL Globulin (2.3-3.5) g/dL Albumin/Globulin Ratio (1.2-2.2) Procalcitonin ng/mL Influenza Type A RNA (NEGATIVE) RSV RNA (INAAT) (NEGATIVE) Influenza Type B RNA (NEGATIVE) SARS-CoV-2 RNA (MARI) (NEGATIVE) Meds: Medications Generic Name Dose Route Start Last Admin Trade Name Freq PRN Reason Stop Dose Admin Sodium Chloride 10 ml 09/17/20 22:26 Saline Flush FLUSH ASDIRECTED PRN Keep Vein Open Departure - Departure Time of Disposition: 22:29 Disposition: Admitted As Inpatient 66 Condition: Fair Clinical Impression: Weakness - Discharge Information Referrals: Bruno Hurt MD [Primary Care Provider] - Forms: ED Department Discharge Sepsis Event Note (ED) - Focused Exam Vital Signs: Vital Signs Temp Pulse Resp BP Pulse Ox 02/19/21 22:21 95.6 F L 80 18 111/76 93 L 09/17/20 21:11 97.5 F 84 18 143/89 H 94 L - My Orders Last 24 Hours: My Active Orders 09/17/20 21:12 Chest 1V Frontal [CR] Stat Isolation [COMM] Stat 09/17/20 22:23 UA W/MICROSCOPIC [URIN] Urgent 09/17/20 22:26 Peripheral IV Care [RC] . DIRECTED CULTURE BLOOD [BC] Urgent CULTURE BLOOD [BC] Urgent Sodium Chloride 0.9% [Saline Flush] 10 ml FLUSH ASDIRECTED PRN Blood Culture x2 Reflex Set [OM.PC] Urgent Peripheral IV Insertion Adult [OM.PC] Urgent - Assessment/Plan Last 24 Hours: My Active Orders 09/17/20 21:12 Chest 1V Frontal [CR] Stat Isolation [COMM] Stat 09/17/20 22:23 UA W/MICROSCOPIC [URIN] Urgent 09/17/20 22:26 Peripheral IV Care [RC] . DIRECTED CULTURE BLOOD [BC] Urgent CULTURE BLOOD [BC] Urgent Sodium Chloride 0.9% [Saline Flush] 10 ml FLUSH ASDIRECTED PRN Blood Culture x2 Reflex Set [OM.PC] Urgent Peripheral IV Insertion Adult [OM.PC] Urgent Plan: Assessment Acuity = acute Site and laterality = weakness complicated in a gentleman with known history of Down syndrome VSD and recurrent pneumonias with a fever Etiology = unknown Manifestations = none Location of injury = Home Lab values = CBC CMP lactic acid procalcitonin CRP D-dimer all within normal limits chest x-ray I did review films myself I cannot appreciate any acute process, the official read from radiology is pending, urinalysis blood cultures pending Plan Call discussed case with Dr. Rodríguez physician on-call he kindly agreed to come and evaluate the patient in the hospital for admission This note was dictated using [employer] voice recognition software please call with any questions on syntax or grammar.
[2020-09-17 22:05] LABS: CORONAVIRUS COVID-19 NAA NEGATIVE (NEGATIVE)
[2020-09-17] MEDS ORDERED: Sodium Chloride 0.9% 10 ML Syringe FLUSH PRN (22:26)
[2020-09-17] MEDS ORDERED: cefTRIAXone 1 GM in Sodium Chloride 0.9% 50 ML IV ONE (23:12)
[2020-09-17] MEDS ORDERED: Azithromycin 500 MG in Sodium Chloride 0.9% 250 ML IV ONE (23:12)
[2020-09-17] MEDS ORDERED: Acetaminophen 325 MG Tab PO PRN (23:15)
[2020-09-17] MEDS ORDERED: Albuterol 0.083% 2.5 MG/3 ML Neb Soln NEB PRN (23:15)
[2020-09-18] MEDS ORDERED: Ondansetron 4 MG Tab.DIS PO PRN (00:13)
[2020-09-18] MEDS ORDERED: FLU VACC QS2020-21(6MOS UP)/PF 60 MCG/0.5 ML SYRINGE IM ONE ×2 (01:00→10:00)
[2020-09-18 05:57] VITALS: BP 108/59; PULSE 76
[2020-09-18] MEDS ORDERED: Pantoprazole 40 MG Tab.CR PO SCH (07:30)
--- NOTE | 2020-09-18 07:33 | DISCH ---
REASON FOR ADMISSION: A 25-year-old male with history of Down syndrome and morbid obesity with previous episodes of pneumonia and reported COPD, was admitted with 1-day onset of fever to 103 degrees with unknown source of fever. He has had no cough, sputum production, shortness of breath, or GI upset. Does note mild epigastric discomfort. He is a nonsmoker. Has not received annual influenza vaccine nor COVID vaccine. Appetite has been fair. He presented with family to the emergency room for evaluation. PHYSICAL EXAMINATION: VITAL SIGNS: On admission, afebrile, vital signs stable, O2 sats 93% and greater on room air. HEENT: Unremarkable. Oral mucosa was moist, noninflamed and dry. NECK: No adenopathy, thyromegaly, or JVD. LUNGS: Symmetrical and clear. Non-tachypneic. Stable oximetries. HEART: Regular without gallops. Grade 2 mid systolic murmur heard at the right sternal border secondary to known congenital ventricular septal defect. ABDOMEN: Obese, soft, with active sounds. No obvious organomegaly. The patient subjectively noted discomfort in the epigastrium. He has had no emesis, hematemesis, or diarrhea. Voiding with intermittent regularity without dysuria. EXTREMITIES: Warm and pink. Non-diaphoretic. Skin was intact. IMAGING: Chest x-ray on admission, no obvious infiltrative change. LABORATORY DATA: CBC included WBC and hemoglobin within normal range. General chemistries including electrolytes, glucose, renal function, liver functions are unremarkable. Urinalysis was negative on dipstick. Nasal swab for influenza, RSV, and COVID vaccine is obtained and found to be negative as well. HOSPITAL COURSE: With fever and familial concerns of previous pneumonia, Samuel was admitted to observation bed, IV ceftriaxone and oral azithromycin were administered. He has a recognized history of obstructive sleep apnea and did not have CPAP available for use during the night. Therefore, supplemental oxygen was provided. He maintained O2 sats at greater than 93% when at rest. The following morning, he had mild nonproductive cough. Vital signs remained stable without evidence of acute respiratory distress or other obvious signs of infection and absence of earlier reported fever. Plans for discharge to home were made. DISCHARGE INSTRUCTIONS: 1. Home with family on 09/18/2020. 2. Activity, up as tolerated. 3. Regular diet. 4. Resume use of nocturnal CPAP therapy. 5. Follow up with regular provider in 1 to 2 weeks' time. DISCHARGE MEDICATIONS: 1. Ibuprofen 800 mg t.i.d. p.r.n. pain. 2. Allopurinol 100 mg p.o. daily for hyperuricemia and gout. 3. Azithromycin 250 mg daily x4 to complete a 5-day course at that dose. 4. Influenza vaccine provided during the hospital stay. ADMITTING DIAGNOSES: 1. Fever. 2. History of Down syndrome. 3. Hyperuricemia with history of gout. 4. Obstructive sleep apnea with CPAP therapy. 5. Morbid obesity. DISCHARGE DIAGNOSES: 1. Febrile presentation, likely secondary to acute viral syndrome. 2. History of Down syndrome. 3. Hyperuricemia with history of gout. 4. Obstructive sleep apnea with CPAP therapy. 5. Morbid obesity. /[id number]
[2020-09-18] MEDS ORDERED: Allopurinol 100 MG Tab PO SCH (09:00)
[2020-09-18] MEDS ORDERED: Azithromycin 250 MG Tab PO SCH (09:00)
[2020-09-18] MEDS ORDERED: cefTRIAXone 1 GM in Sodium Chloride 0.9% 50 ML IV SCH (22:00)
--- NOTE | 2020-09-19 14:45 | HP ---
IDENTIFYING DATA: Samuel Maher is a 25-year-old male from [place], [place]. CHIEF COMPLAINT: Reported fever. HISTORY OF PRESENT ILLNESS: Factual information from patient is limited given Ciaran's noted history of Down syndrome with cognitive impairment. Accuracy of medical information is questionable. Family had reported onset of fever to 103 degrees the day of admission. He had no reports of nasal congestion, coryza, sore throat, cough, or sputum production. Records suggest a history of obstructive pulmonary disease, though he is on no chronic respiratory treatments. He does complain of epigastric pain this evening. He reports he has eaten today. Denies emesis or diarrhea. He is voiding with usual frequency. Review of records does not indicate recent vaccinations including no documentation of influenza or COVID vaccine this winter season. PAST MEDICAL HISTORY: History of Down syndrome, reported COPD, obstructive sleep apnea, and chronic ventricular septal defect. Additionally, he has a history of hyperuricemia with gout. PAST SURGICAL HISTORY: Records indicate previous surgeries include tonsillectomy and cholecystectomy in the remote past. SOCIAL HISTORY: Denies tobacco or alcohol use. Occasional use of carbonated soft drinks. ALLERGIES: MORPHINE AND LORATADINE. CURRENT MEDICATIONS: Include allopurinol 100 mg daily, ibuprofen 800 mg t.i.d. p.r.n. pain, and Zofran 4 mg q.6 hours p.r.n. SOCIAL HISTORY: Cognitive impairment secondary to Down syndrome, currently residing with family members. He is ambulatory. Denies falls. No injuries to the extremities. FAMILY HISTORY: No noted reports or recent acute respiratory infection including COVID. REVIEW OF SYSTEMS: NEUROLOGIC: No history of strokes, seizures, or visual impairment. He denies hearing problems. CARDIAC: No history of hypertension, diabetes, [place], chest pain, or palpitations. History of congenital ventricular septal defect. RESPIRATORY: As above. GASTROINTESTINAL: Notes epigastric discomfort. No history of hepatitis, jaundice, or recent bowel changes. GENITOURINARY: The records indicate a history of obstructive urinary outlet symptoms with previous use of tamsulosin. Notes of voiding in small amounts with arrival today. MUSCULOSKELETAL: Without complaints of arthralgias. PHYSICAL EXAMINATION: VITAL SIGNS: Reported T-max of 103 degrees at home. Temperature on arrival includes a reading of 95.6 degrees Fahrenheit following administration of antipyretics, pulse rate 80, respiratory rate 18 with O2 sats of 93%, and blood pressure 111/76. HEENT: Sclerae are anicteric. Pupils are reactive. Extraocular eye movements are intact. No nasal congestion or coryza. Oral mucosa is moist. NECK: Brisk carotid pulses. No bruits. LUNGS: Symmetrical, clear, resonant, and non-tachypneic. HEART: Regular without gallops noted. Non-tachycardic. ABDOMEN: Obese. Active sounds noted. No organomegaly. No guarding or rebound. Does have complaints of tenderness in the epigastrium as well as lower suprapubic midline. No CVA tenderness. EXTREMITIES: Good radial and posterior tibial pulses. SKIN: Warm, pink, and dry without diaphoresis. No open skin lesions in the lower extremities. He does have erythema and induration in the left axillary region. Suggestion of old hidradenitis infections of the right axillary area. LABORATORY DATA: On admission WBC 9.9, hemoglobin 15.3, platelet count 341,000 with 59 segs, 31 lymphocytes, and 9 monos. Influenza A and B, RSV, and COVID nasal smear negative. Sodium 140, potassium 4.0, creatinine 1.1, GFR greater than 60, glucose 102, lactic acid 1.2, and calcium 8.7. Liver functions within normal range. C-reactive protein 1.43. Procalcitonin less than 0.05. Troponin I less than 0.017. Chest x-ray, no definitive cardiac or pulmonary changes evident. No effusions. IMPRESSIONS: 1. Febrile presentation, unknown etiology. Does have a reported past history of pneumonias. Consider early acute pulmonary infection versus developing abscess at the left axillary region. 2. History of Down syndrome with cognitive impairment. 3. Reported history of chronic obstructive pulmonary disease. 4. History of hyperuricemia with gout. 5. Ventricular septal defect, congenital. PLAN: Nasal smear, results for viral studies are reviewed and found to be unremarkable. Urinalysis on dipstick is negative as well. Urine and blood cultures have been requested. Empiric antibiotic therapy with IV Rocephin and oral azithromycin has been ordered. We will provide Tylenol as an antipyretic. Oral PPI therapies and Zofran as needed for nausea. Monitor for signs of localized acute infectious illness. Full code status with routine vitals and regular diet are offered. If condition stabilizes, we will anticipate discharge to home for continued outpatient management by family. Ernesto Rodríguez MD /[id number]
--- NOTE | 2020-09-20 09:21 | CR ---
CHEST: Portable 09/17/2020 at 9:57 PM CLINICAL HISTORY:Respiratory failure COMPARISON:2018 FINDINGS: The heart is enlarged. The there is some mild right sided prominence which may represent right atrium. The vascular areas cephalized. No infiltrates are seen. Patient has some mild interstitial prominence which is chronic. IMPRESSION: Cardiomegaly with some mild vascular cephalization may represent some mild CHF Prominent right heart margin may represent some right atrial enlargement Two-view chest recommended when patient's condition allows
== END 2020-09-18 06:36 | disposition home or self-care (01) ==
LOC: JP.ED 20:56 → JP.MS 23:19
PROVIDERS: ADMIT Family Medicine; ATTEND Family Medicine
DX: R50.9 Fever, unspecified (principal); J44.9 Chronic obstructive pulmonary disease, unspecified; I51.7 Cardiomegaly; G47.33 Obstructive sleep apnea (adult) (pediatric); M10.9 Gout, unspecified; Q90.9 Down syndrome, unspecified; Q21.0 Ventricular septal defect; E66.01 Morbid (severe) obesity due to excess calories; Z68.41 Body mass index [BMI] 40.0-44.9, adult; Z20.822 Contact with and (suspected) exposure to COVID-19; G31.84 Mild cognitive impairment of uncertain or unknown etiology; Z88.5 Allergy status to narcotic agent
CPT/HCPCS: 0241U; 36415; 71045; 80048; 80076; 81001; 83605; 84145; 84484; 85025; 85379; 86140; 87040; 96365; 96374; 99285; A9270; G0378; J0456; J0696; J7050

== ENCOUNTER 2021-08-14 19:20 | Emergency (ER) | payer MEDICAID ==
[2021-08-14 21:24] VITALS: BP 133/79; PULSE 78
== END 2021-08-14 22:46 | disposition home or self-care (01) ==
LOC: JP.ED 19:20
DX: U07.1 COVID-19 (principal); J96.01 Acute respiratory failure with hypoxia; K21.9 Gastro-esophageal reflux disease without esophagitis; Q90.9 Down syndrome, unspecified; E66.9 Obesity, unspecified; Z88.5 Allergy status to narcotic agent; Z88.8 Allergy status to other drugs, medicaments and biological substances; Z79.899 Other long term (current) drug therapy; Z68.42 Body mass index [BMI] 45.0-49.9, adult
CPT/HCPCS: 36415; 36600; 71045; 71045-26; 80053; 82728; 82803; 83605; 83615; 84145; 85025; 85379; 86140; 99285-25

== ENCOUNTER 2021-12-10 14:07 | Emergency (ER) | payer MEDICAID ==
[2021-12-10 15:12] LABS: CORONAVIRUS COVID-19 NAA NEGATIVE (NEGATIVE)
[2021-12-10] MEDS ORDERED: Ondansetron 4 MG/2 ML SDV IVPUSH ONE (16:17)
[2021-12-10] MEDS ORDERED: Famotidine 20 MG/2 ML SDV IVPUSH ONE (16:17)
[2021-12-10] MEDS ORDERED: Sodium Chloride 0.9% 10 ML Syringe FLUSH PRN (16:17)
[2021-12-10] MEDS ORDERED: Sodium Chloride 0.9% 1,000 ML IV SCH (16:30)
[2021-12-10] MEDS ORDERED: Metoclopramide 10 MG/2 ML SDV IVPUSH ONE (18:43)
[2021-12-10 18:54] VITALS: BP 130/72; PULSE 91
== END 2021-12-10 19:15 | disposition home or self-care (01) ==
LOC: JP.ED 14:07
DX: B34.9 Viral infection, unspecified (principal); R11.2 Nausea with vomiting, unspecified; E66.9 Obesity, unspecified; Z68.41 Body mass index [BMI] 40.0-44.9, adult; Z88.5 Allergy status to narcotic agent; Z88.8 Allergy status to other drugs, medicaments and biological substances; Z20.822 Contact with and (suspected) exposure to COVID-19
CPT/HCPCS: 0241U; 36415; 71046; 80053; 81001; 83735; 85025; 96361; 96374; 96375; 99284; J2405; J2765; J3490; J7030; 99283

== ENCOUNTER 2022-07-04 15:00 | Emergency (ER) | payer MEDICAID ==
[2022-07-04] MEDS ORDERED: Sodium Chloride 0.9% 10 ML Syringe FLUSH PRN (15:37)
[2022-07-04 16:11] LABS: TROPONIN I HIGH SENSITIVITY 13.2 pg/mL (<=60.3)
[2022-07-04] MEDS ORDERED: Iopamidol 612 MG/ML 100 ML Bottle IV SCH (16:15)
[2022-07-04] MEDS ORDERED: Sodium Chloride 0.9% 75 ML IV SCH (16:15)
[2022-07-04 17:18] VITALS: BP 106/66; PULSE 80
== END 2022-07-04 17:43 ==
LOC: JP.ED 15:00
DX: I31.39 Other pericardial effusion (noninflammatory) (principal); E66.9 Obesity, unspecified; Z68.41 Body mass index [BMI] 40.0-44.9, adult; Z88.6 Allergy status to analgesic agent; Z88.8 Allergy status to other drugs, medicaments and biological substances; Z79.899 Other long term (current) drug therapy; Z90.49 Acquired absence of other specified parts of digestive tract; Z20.822 Contact with and (suspected) exposure to COVID-19
CPT/HCPCS: 36415; 71260; 80048; 84484; 85025; 87635; 93005; 99285; J3490; Q9967; U0002

== ENCOUNTER 2024-03-26 11:24 | Emergency (ER) | payer MEDICAID ==
[2024-03-26] MEDS ORDERED: Sodium Chloride 0.9% 10 ML Syringe FLUSH PRN (12:52)
[2024-03-26 12:55] LABS: BASOPHILS ABSOLUTE AUTO 0.08 K/uL (0.00-0.10); BASOPHILS PERCENT AUTO 0.4 % (0.1-1.3); HEMATOCRIT 48.3 % (38.4-49.7); HEMOGLOBIN 16.5 g/dL (12.9-16.9); IMMATURE GRAN ABSOLUTE AUTO 0.15 K/uL (0.00-0.23); IMMATURE GRAN PERCENT AUTO 0.7 % (0.0-0.7); LYMPHOCYTES ABSOLUTE AUTO 1.51 K/uL (0.8-3.3); LYMPHOCYTES PERCENT AUTO 7.2 % (11.4-47.7); MEAN CORPUSCULAR HEMOGLOBIN 34.2 pg (31.6-35.5); MEAN CORPUSCULAR HGB CONC 34.2 g/dL (31.6-35.5); MEAN CORPUSCULAR VOLUME 100.2 fL (81.4-99.0); MONOCYTES ABSOLUTE AUTO 1.54 K/uL (0.20-0.90); MONOCYTES PERCENT AUTO 7.4 % (3.3-12.6); NEUTROPHILS ABSOLUTE AUTO 17.64 K/uL (1.0-7.6); NEUTROPHILS PERCENT AUTO 84.3 % (40.0-78.1); PLATELET COUNT,PLT 285 K/uL (130-375); RED BLOOD CELL COUNT 4.82 M/uL (4.14-5.76); WHITE BLOOD CELL COUNT,WBC 20.9 K/uL (3.2-11.0)
[2024-03-26] MEDS ORDERED: Cefepime 1 GM Vial IV SCH (13:00)
[2024-03-26 13:17] LABS: ALANINE AMINOTRANSFERASE,ALT 27 U/L (12-78); ALBUMIN 3.5 g/dL (3.4-5.0); ALKALINE PHOSPHATASE 62 U/L (46-116); ASPARTATE AMNIOTRANSFERASE,AST 20 U/L (15-37); BILIRUBIN TOTAL 0.5 mg/dL (0.2-1.0); BLOOD UREA NITROGEN,BUN 12 mg/dL (7-18); C-REACTIVE PROTEIN 11.85 mg/dL (<0.50); CALCIUM 8.7 mg/dL (8.5-10.1); CARBON DIOXIDE,CO2 31 mmol/L (21-32); CHLORIDE,CL 100 mmol/L (100-108); CREATININE 1.3 mg/dL (0.8-1.3); EST CRCL DRUG DOSING (CG) 59.83 mL/min; ESTIMATED GFR 77 mL/min (>60); GLUCOSE RANDOM 113 mg/dL (74-106); POTASSIUM,K 4.3 mmol/L (3.6-5.2); PROTEIN TOTAL,TP 8.9 g/dL (6.4-8.2); SODIUM,NA 139 mmol/L (140-148)
[2024-03-26 13:18] LABS: A/G RATIO 0.7 (1.2-2.2); ANION GAP 12.3 mmol/L (5.0-14.0)
[2024-03-26 13:22] LABS: LACTIC ACID 2.2 mmol/L (0.4-2.0)
[2024-03-26 13:28] LABS: BASE EXCESS ARTERIAL 2.1 mm/L; BICARBONATE,ARTERIAL 25.5 mmol/L (22.0-26.0); CARBOXYHEMOGLOBIN 2.1 % (0.0-1.6); METHEMOGLOBIN 0.8 %; O2 SATURATION ARTERIAL 95.3 % (95.0-98.0); OXYHEMOGLOBIN 92.5 %; PCO2 ARTERIAL 37.4 mmHg (35.0-42.0); PO2 ARTERIAL 76.5 mmHg (75.0-100.0); TOTAL HEMOGLOBIN 16.6 g/dL (13.5-18.0)
[2024-03-26 13:45] LABS: APPEARANCE,URINE CLEAR (CLEAR); BILIRUBIN,URINE NEGATIVE (NEGATIVE); COLOR,URINE YELLOW (YELLOW); GLUCOSE,URINE NEGATIVE (NEGATIVE); KETONES,URINE NEGATIVE (NEGATIVE); LEUKOCYTE ESTERASE,URINE NEGATIVE (NEGATIVE); NITRITE,URINE NEGATIVE (NEGATIVE); OCCULT BLOOD,URINE NEGATIVE (NEGATIVE); PROTEIN,URINE 30 mg/dL (NEGATIVE); UROBILINOGEN,URINE 0.2 EU/dL (0.2-1.0)
[2024-03-26 13:52] LABS: BACTERIA,URINE NOT SEEN; EPITHELIAL CELLS,URINE NOT SEEN; RBC,URINE NOT SEEN (0-5); WBC,URINE NOT SEEN (0-5)
[2024-03-26 13:53] LABS: AMORPHOUS SEDIMENT,URINE RARE
[2024-03-26] MEDS: Sodium Chloride 0.9% 10 ML Syringe FLUSH PRN (14:07)
[2024-03-26] MEDS: Sodium Chloride 0.9% 80 ML IV SCH (14:08)
[2024-03-26] MEDS: Iopamidol 612 MG/ML 100 ML Bottle IV PRN (14:08)
[2024-03-26] MEDS: Lactated Ringers 1,000 ML IV SCH (14:14)
[2024-03-26] MEDS: Albuterol/Ipratropium 3.0-0.5 MG/3 ML Neb Soln NEB ONE (14:14)
[2024-03-26] MEDS: Cefepime 2 GM in Sodium Chloride 0.9% 50 ML IV SCH (14:14)
[2024-03-26] MEDS: LORazepam 2 MG/ML SDV IVPUSH ONE ×2 (14:57→15:18)
[2024-03-26] MEDS ORDERED: Sodium Chloride 0.9% 10 ML Syringe FLUSH ONE (15:08)
[2024-03-26 15:09] LABS: CORONAVIRUS COVID-19 NAA NEGATIVE (NEGATIVE); INFLUENZA A NAA NEGATIVE (NEGATIVE); INFLUENZA B NAA NEGATIVE (NEGATIVE); RESPIRATORY SYNCYTIAL VIR NAA NEGATIVE (NEGATIVE)
[2024-03-26] MEDS: Sodium Chloride 0.9% 100 ML IV SCH (15:44)
[2024-03-26] MEDS: Iopamidol 755 Mg/ML 100 ML Bottle IV SCH (15:44)
[2024-03-26 16:15] LABS: BASE EXCESS ARTERIAL 2.2 mm/L; BICARBONATE,ARTERIAL 27.5 mmol/L (22.0-26.0); CARBOXYHEMOGLOBIN 1.6 % (0.0-1.6); METHEMOGLOBIN 0.6 %; O2 SATURATION ARTERIAL 95.2 % (95.0-98.0); OXYHEMOGLOBIN 93.1 %; PCO2 ARTERIAL 46.7 mmHg (35.0-42.0); PO2 ARTERIAL 79.4 mmHg (75.0-100.0); TOTAL HEMOGLOBIN 15.6 g/dL (13.5-18.0)
[2024-03-26] MEDS: fentaNYL 100 MCG/2 ML SDV IVPUSH ONE (16:40)
[2024-03-26] MEDS: Sodium Chloride 0.9% 1,000 ML IV ONE ×2 (16:55→17:15)
[2024-03-26] MEDS: Etomidate 2 MG/ML 10 ML SDV IVPUSH ONE (16:56)
[2024-03-26] MEDS: Propofol 200 MG/20 ML SDV IVPUSH ONE (16:59)
[2024-03-26] MEDS: propofoL 100 ML IV SCH ×2 (17:03→18:11)
[2024-03-26] MEDS: Heparin Sodium 5,000 UNITS in Sodium Chloride 0.9% 500 ML IV SCH (17:20)
[2024-03-26] MEDS: Norepinephrine Bit/D5W Premix 4 MG in Premix Bag 1 BAG IV SCH (17:26)
[2024-03-26] MEDS ORDERED: Norepinephrine Bit/D5W Premix 4 MG in Premix Bag 1 BAG IV SCH (17:30)
[2024-03-26 17:58] VITALS: BP 97/55; PULSE 106
[2024-03-26 18:07] LABS: BASE EXCESS ARTERIAL -3.2 mm/L; BICARBONATE,ARTERIAL 23.2 mmol/L (22.0-26.0); CARBOXYHEMOGLOBIN 1.8 % (0.0-1.6); O2 SATURATION ARTERIAL 93.5 % (95.0-98.0); OXYHEMOGLOBIN 90.9 %; PCO2 ARTERIAL 49.2 mmHg (35.0-42.0); PO2 ARTERIAL 78.2 mmHg (75.0-100.0); TOTAL HEMOGLOBIN 14.4 g/dL (13.5-18.0)
[2024-03-26] MEDS: Sodium Chloride 0.9% 1,000 ML IV SCH (18:15)
== END 2024-03-26 18:50 ==
LOC: JP.ED 11:24
DX: J96.01 Acute respiratory failure with hypoxia (principal); E66.9 Obesity, unspecified; Z88.5 Allergy status to narcotic agent; Z88.8 Allergy status to other drugs, medicaments and biological substances; Z79.899 Other long term (current) drug therapy; Z90.49 Acquired absence of other specified parts of digestive tract; Z68.41 Body mass index [BMI] 40.0-44.9, adult
CPT/HCPCS: 0241U; 31500; 36415; 36600; 43752; 51702; 71045; 71275; 74177; 80053; 81001; 82803; 83605; 84145; 85025; 86140; 87040; 93005; 93010; 94640; 96361; 96365; 96366; 96367; 96368; 96375; 96376; 99285; J0692; J1644; J2060; J2704; J3010; J3370; J3490; J7030; J7040; J7050; J7120; Q9967; 36620; J7620